=== PATIENT | male | born 1945 | race African-American/Black ===

== ENCOUNTER 2020-05-04 09:21 | Inpatient (IN) | payer OTHER, MEDICARE ==
[~2020-05-04] VITALS: Ht 175.3 cm; Wt 61.7 kg
[2020-05-04] MEDS ORDERED: SODIUM CHLORIDE 0.9% 1,000 ML IV ONE (09:45)
[2020-05-04 10:26] LABS: HEMATOCRIT. 21.2 % (42.0-52.0); MEAN CORPUSCULAR HEMOGLOBIN 32.5 pg (28.0-32.0); MEAN CORPUSCULAR VOLUME 100.5 fL (80.0-94.0); MEAN PLATELET VOLUME 7.2 fl (7.4-10.4); PLATELET 157 x1000/uL (130-400); RED BLOOD CELL COUNT 2.11 mill/uL (4.7-6.1); RED CELL DISTRIBUTION WIDTH 20.9 % (11.6-14.6)
[2020-05-04 10:32] LABS: HEMOGLOBIN. 6.9 g/dL (14.0-18.0)
[2020-05-04 10:35] LABS: CHLORIDE 98 mEq/L (98-107)
[2020-05-04 10:36] LABS: INR 1.2; PROTHROMBIN TIME 12.4 sec (9.6-11.0)
[2020-05-04 10:48] LABS: PLATELET ESTIMATE NORMAL
[2020-05-04] MEDS ORDERED: CEFEPIME 1,000 MG in DEXTROSE 5% WATER 50 ML IV SCH (11:30)
[2020-05-04] MEDS ORDERED: HYDRALAZINE 20MG/ML VIAL IV PRN (15:45)
[2020-05-04] MEDS ORDERED: TRAZODONE HCL 50MG TABLET PO PRN (16:45)
[2020-05-04] MEDS ORDERED: ONDANSETRON HCL 4MG/2ML INJ IV PRN (16:45)
[2020-05-04] MEDS ORDERED: ACETAMINOPHEN 325MG TABLET PO PRN (16:45)
[2020-05-04] MEDS: DEXT 5%/0.45% NACL 1000ML 1,000 ML IV SCH (18:41)
[2020-05-04 20:41] VITALS: BP 100/52
[2020-05-04 21:00] VITALS: BP 100/52
[2020-05-05] VITALS (7 sets, daily range): BP systolic 79–123; BP diastolic 44–93
[2020-05-05] MEDS ORDERED: MORP15TA67 MT (00:41)
[2020-05-05] MEDS ORDERED: LISI10TA26 MT (00:41)
[2020-05-05] MEDS ORDERED: HYDR-4346 MT (00:41)
[2020-05-05] MEDS ORDERED: ATOR10TA69 MT (00:41)
[2020-05-05] MEDS: DEXT 5%/0.45% NACL 1000ML 1,000 ML IV SCH (05:36)
[2020-05-05 06:59] LABS: HEMATOCRIT. 22.5 % (42.0-52.0); HEMOGLOBIN. 7.5 g/dL (14.0-18.0); MEAN CORPUSCULAR HEMOGLOBIN 32.3 pg (28.0-32.0); MEAN CORPUSCULAR VOLUME 96.7 fL (80.0-94.0); PLATELET 128 x1000/uL (130-400); RED BLOOD CELL COUNT 2.33 mill/uL (4.7-6.1); RED CELL DISTRIBUTION WIDTH 18.9 % (11.6-14.6)
[2020-05-05 07:02] LABS: CHLORIDE 105 mEq/L (98-107)
[2020-05-05 07:16] LABS: HAPTOGLOBIN 406 mg/dL (30-200); PROSTRATE SPECIFIC AG TOTAL 0.23 ng/mL (0.0-4.0)
[2020-05-05] MEDS ORDERED: CYANOCOBALAMIN 1000MCG TABLET PO SCH (07:40)
[2020-05-05 08:32] LABS: CLARITY URINE CLEAR (CLEAR); COLOR URINE YELLOW (YELLOW); KETONES URINE NEGATIVE (NEGATIVE); LEUKOCYTE ESTERASE URINE NEGATIVE (NEGATIVE); NITRITE URINE NEGATIVE (NEGATIVE); OCCULT BLOOD URINE NEGATIVE (NEGATIVE); PROTEIN URINE NEGATIVE (NEGATIVE); UROBILINOGEN URINE 0.2 E.U./dL (0.2-1.0)
[2020-05-05] MEDS ORDERED: MAGNESIUM OXIDE 400MG TABLET PO SCH (09:00)
[2020-05-05 09:15] LABS: *AMPHETAMINES SCREEN URINE NEGATIVE (NEGATIVE); *BARBITURATES SCREEN URINE NEGATIVE (NEGATIVE); *BENZODIAZEPINES SCREEN URINE NEGATIVE (NEGATIVE); *COCAINE SCREEN URINE NEGATIVE (NEGATIVE); METHADONE URINE SCREEN NEGATIVE (NEGATIVE)
[2020-05-05 09:16] LABS: CANNABINOID URINE SCREEN NEGATIVE (NEGATIVE); OPIATES URINE SCREEN PRESUMTIVE POSITIVE (NEGATIVE); PHENCYCLIDINE URINE SCREEN NEGATIVE (NEGATIVE)
[2020-05-05] MEDS ORDERED: FERR324T4 MT (10:20)
[2020-05-05] MEDS ORDERED: MAGNESIUM 2 G PREMIX 50 ML IV SCH (12:00)
[2020-05-05 13:59] LABS: CARCINO EMBRYONIC ANTIGEN 289.3 ng/ml
[2020-05-05 23:20] LABS: PLATELET ESTIMATE NORMAL
[2020-05-06 16:39] LABS: IMMUNOGLOBULIN A 107 mg/dL (61-437); IMMUNOGLOBULIN G 947 mg/dL (603-1613); IMMUNOGLOBULIN M 44 mg/dL (15-143)
== END 2020-05-05 17:48 | disposition home or self-care (01) | DRG 181 ==
LOC: ER 09:21 → EDBEDREQTM 09:41 → EDBEDREQ 11:57 → EDBEDREQTM 11:57 → 8WST 13:52 → EDBEDREQSVC 14:00 → EDBEDREQTM 14:00 → EDBEDREQ 14:00 → ENRESERV 15:11 → ER 16:00
PROVIDERS: ADMIT Family Medicine Adult Medicine; ATTEND Family Medicine Adult Medicine
PROC: 30233N1 Transfusion of Nonautologous Red Blood Cells into Peripheral Vein, Percutaneous Approach (ICD-10-PCS; principal; 2020-05-04)
DX: C34.90 Malignant neoplasm of unspecified part of unspecified bronchus or lung (principal); E87.2 Acidosis; R64 Cachexia; R65.10 Systemic inflammatory response syndrome (SIRS) of non-infectious origin without acute organ dysfunction; D53.9 Nutritional anemia, unspecified; E11.9 Type 2 diabetes mellitus without complications; E78.5 Hyperlipidemia, unspecified; E83.42 Hypomagnesemia; I10 Essential (primary) hypertension; I25.10 Atherosclerotic heart disease of native coronary artery without angina pectoris; J44.9 Chronic obstructive pulmonary disease, unspecified; Z79.899 Other long term (current) drug therapy; Z85.118 Personal history of other malignant neoplasm of bronchus and lung; Z85.46 Personal history of malignant neoplasm of prostate; Z87.891 Personal history of nicotine dependence; Z88.8 Allergy status to other drugs, medicaments and biological substances; Z68.20 Body mass index [BMI] 20.0-20.9, adult
CPT/HCPCS: 36415; 71045; 80053; 80305; 81003; 82378; 82784; 83010; 83036; 83605; 83615; 83735; 84145; 84153; 84484; 85025; 85044; 86334; 86850; 86880; 86900; 86920; 93005; 97162; 97535; 99285; J0692; J3475; J7030; J7040; J7060; P9016; G0103